=== PATIENT | female | born 1950 | race Caucasian/White ===

== ENCOUNTER → 2017-02-28 | Outpatient (CLI) | payer OTHER, MEDICAID ==
--- NOTE | 2017-02-28 14:58 | REPMRS ---
Patient History The patient states she had a clinical breast exam in 03/10 Patient is postmenopausal. Family history of breast cancer in maternal aunt. Digital Woman Screen Mammo: February 28, 2017 - Exam #: [id number] Bilateral CC and MLO view(s) were taken. Technologist: Lynette Vásquez, Technologist Prior study comparison: November 29, 2013, digital woman screen mammo performed at [facility]. January 02, 2012, digital woman screen mammo performed at [facility]. January 03, 2011, bilateral bilat screen digital mammo performed at [facility]. FINDINGS: There are scattered fibroglandular densities. There is a moderate amount of residual fibroglandular tissue which is fairly symmetric. There is no interval development of dominant mass, architectural distortion, or clustered microcalcification typical of malignancy. There has been no change in the appearance of the mammogram from the prior studies. ASSESSMENT: BI-RADS/ACR category 1 mammogram. Negative. Recommendation Routine screening mammogram of both breasts in 1 year (for women over age 40). This mammogram was interpreted with the aid of an FDA-approved computer-aided dectection system. Electronically Signed By: Marino Noe MD 02/28/17 [id number]
== END ==
LOC: M WHC 13:21
PROVIDERS: ATTEND Nurse Practitioner Family
DX: Z01.419 Encounter for gynecological examination (general) (routine) without abnormal findings (principal); Z12.31 Encounter for screening mammogram for malignant neoplasm of breast; Z78.0 Asymptomatic menopausal state; Z12.12 Encounter for screening for malignant neoplasm of rectum
CPT/HCPCS: 82270; G0101; G0202

== ENCOUNTER 2019-06-19 10:20 | Emergency (ER) | payer MEDICARE, MEDICAID ==
[~2019-06-19] VITALS: Ht 157.5 cm; Wt 60.0 kg
[2019-06-19] MEDS ORDERED: ONDANSETRON 4MG/2ML VIAL (J2405) IV ONE (10:45)
[2019-06-19] MEDS: MORPHINE 2 MG/ML 1ML VIAL (J2270) IV PRN ×4 (11:08→12:43)
[2019-06-19 11:17] LABS: BASO % 0.5 % (0.0-1.0); EOS # 0.2 10^3/uL (0.0-0.5); EOS % 3.8 % (0.0-3.0); HEMATOCRIT 40.1 % (36.0-47.0); HEMOGLOBIN 13.5 g/dl (12.0-15.5); LYMPH % 36.6 % (24.0-44.0); MEAN CORPUSCULAR HGB CONC 33.7 g/dl (32.0-36.5); MONO # 0.5 10^3/uL (0.0-0.8); MONO % 9.7 % (0.0-5.0); NEUTROPHILS # 2.7 10^3/uL (1.5-8.5); NEUTROPHILS % 49.2 % (36.0-66.0); PLATELET COUNT, AUTOMATED 273 10^3/uL (150-450); RED BLOOD COUNT 4.22 10^6/uL (4.00-5.40); WHITE BLOOD COUNT 5.5 10^3/uL (4.0-10.0)
[2019-06-19 11:35] LABS: ERYTHROCYTE SEDIMENTATION RATE 13 mm/hr (0-30)
[2019-06-19 11:57] LABS: ALBUMIN 3.4 GM/DL (3.2-5.2); ALT/SGPT 26 U/L (12-78); BILIRUBIN,DIRECT 0.1 MG/DL (0.0-0.2); BILIRUBIN,TOTAL 0.6 MG/DL (0.2-1.0); BLOOD UREA NITROGEN 9 MG/DL (7-18); C REACTIVE PROTEIN QUANTITATIV < 0.30 MG/DL (0.00-0.30); CARBON DIOXIDE LEVEL 26 MEQ/L (21-32); CHLORIDE LEVEL 109 MEQ/L (98-107); CREATININE FOR GFR 0.92 MG/DL (0.55-1.30); GLOMERULAR FILTRATION RATE > 60.0 (>45); GLUCOSE, FASTING 86 MG/DL (70-100); LIPASE 198 U/L (73-393); POTASSIUM SERUM 4.2 MEQ/L (3.5-5.1); SODIUM LEVEL 140 MEQ/L (136-145); TOTAL PROTEIN 7.3 GM/DL (6.4-8.2)
--- NOTE | 2019-06-19 12:22 | REP ---
LUMBOSACRAL SPINE SERIES: Five views lumbosacral spine performed. There is no compression fracture or malalignment. There is normal lumbar lordosis. There is sclerosis and spurring at the facets of L4-5 and L5-S1. Posterior elements are intact. Scattered vascular calcifications are noted. IMPRESSION: Mild degenerative changes without fracture or dislocation. Electronically Signed by Adrián Burroughs MD 06/19/2019 05:11 P
[2019-06-19] MEDS ORDERED: DEXTROSE 50% 50 ML SYRINGE IV STA (12:25)
[2019-06-19] MEDS ORDERED: ISOVUE-370 76% 100ML VIAL (Q9967) As Ordered ONE (12:35)
[2019-06-19] MEDS ORDERED: MORPHINE 2 MG/ML 1ML VIAL (J2270) IV PRN (12:45)
[2019-06-19] MEDS ORDERED: PERCOCET 5MG/325MG TAB PO ONE (13:45)
[2019-06-19] MEDS ORDERED: CYCLOBENZAPRINE 5MG TABLET PO ONE (13:45)
--- NOTE | 2019-06-19 14:24 | REP ---
CT ANGIOGRAM CHEST: TECHNIQUE: Axial contrast enhanced images from the thoracic inlet to the upper abdomen using 100 mL Isovue 370 intravenous contrast material with multiplanar reformations. There is no CT evidence of thoracic aortic aneurysm or dissection. Mild atherosclerotic calcifications are seen. There is no evidence of pulmonary embolism. There is no mediastinal, hilar, or chest wall lymphadenopathy. There is no pleural or pericardial effusion. Heart is normal in size. There is a small hiatal hernia. The lungs show no evidence of consolidative infiltrate. There are mild degenerative changes of the spine. IMPRESSION: No evidence of thoracic aortic aneurysm or dissection. No pulmonary embolism. Electronically Signed by Adrián Burroughs MD 06/19/2019 05:16 P
--- NOTE | 2019-06-19 14:32 | REP ---
CT ANGIOGRAM ABDOMEN/PELVIS: TECHNIQUE: Axial contrast enhanced images from the lung bases to the pubic symphysis using 100 mL Isovue 370 intravenous contrast material with multiplanar reformations. The abdominal aorta demonstrates mild atherosclerotic calcification. There is no aneurysm or dissection. Iliac arteries are normal in caliber. Liver, spleen, adrenals, pancreas, and kidneys are unremarkable. There is no hydronephrosis. There is no adenopathy. There is no free air or free fluid. No bowel wall thickening is seen. No pelvic mass is seen. There is a small hiatal hernia. Urinary bladder is mildly distended and grossly unremarkable. IMPRESSION: Small hiatal hernia. No evidence of abdominal aortic aneurysm or dissection. No acute abnormality seen in the abdomen or pelvis. Electronically Signed by Adrián Burroughs MD 06/19/2019 05:16 P
[2019-06-19 14:54] VITALS: BP 144/82
[2019-06-19] MEDS ORDERED: PERC5TAB12 PO (14:58)
[2019-06-19] MEDS ORDERED: CYCL5TAB PO (14:58)
== END 2019-06-19 15:18 | disposition home or self-care (01) ==
LOC: M ED 10:20
DX: M54.30 Sciatica, unspecified side (principal); Z88.5 Allergy status to narcotic agent; F17.210 Nicotine dependence, cigarettes, uncomplicated
CPT/HCPCS: 71275; 72110; 74174; 80048; 80076; 81001; 83690; 85025; 85652; 86140; 96374; 96375; 96376; 99284; J2270; J2405; Q9967